=== PATIENT | male | born 1990 | race African-American/Black ===

== ENCOUNTER 2017-10-23 04:44 | Emergency (ER) | payer OTHER ==
[~2017-10-23] VITALS: Ht 177.8 cm; Wt 79.4 kg
[2017-10-23 04:48] VITALS: BP_SYST 122
[2017-10-23 05:25] VITALS: BP_SYST 122
== END 2017-10-23 05:25 ==
LOC: SED 04:44
DX: Z02.89 Encounter for other administrative examinations (principal); R03.0 Elevated blood-pressure reading, without diagnosis of hypertension; V43.03XA Car driver injured in collision with pick-up truck in nontraffic accident, initial encounter; Y93.89 Activity, other specified; Y92.410 Unspecified street and highway as the place of occurrence of the external cause; Y99.8 Other external cause status
CPT/HCPCS: 99283